=== PATIENT | female | born 1960 | race Caucasian/White ===

== ENCOUNTER 2018-12-20 07:51 | Emergency (ER) | payer OTHER ==
[2018-12-20 08:07] VITALS: BP 162/77
--- NOTE | 2018-12-20 08:23 | UC ---
Skin Complaint HPI - HPI Summary HPI Summary: 58-year-old female comes in with a chief complaint of swelling below the left I. Started several days ago. First she thought it might be her sinuses and then the swelling is spread to include her left lower eyelid. It is slightly tender to palpation. No eye drainage denies any eye pain. Does not have any upper respiratory tract infection symptoms. Does not remember beginning written by an insect or other irritation of the area. No fevers or chills feels well otherwise. - History of Current Complaint Chief Complaint: UCEye Time Seen by Provider: 12/20/18 08:14 Stated Complaint: LT EYE Pain Intensity: 5 - Allergy/Home Medications Allergies/Adverse Reactions: Allergies Allergy/AdvReac Type Severity Reaction Status Date / Time No Known Allergies Allergy Verified 12/20/18 08:06 Home Medications: Home Medications amLODIPine TAB* [Norvasc 5 mg TAB*] 5 mg PO DAILY 12/20/18 [History Confirmed ] PMH/Surg Hx/FS Hx/Imm Hx Previously Healthy: Yes Cardiovascular History: Hypertension - Surgical History Surgical History: Yes Surgery Procedure, Year, and Place: choly. appy. rotator left. left full knee - Family History Known Family History: Positive: Non-Contributory - Social History Alcohol Use: None Substance Use Type: None Smoking Status (MU): Never Smoked Tobacco Review of Systems All Other Systems Reviewed And Are Negative: Yes Constitutional: Positive: Negative Skin: Positive: Other - SEE HPI Eyes: Negative: Blurred Vision, Drainage, Eye Redness, Photophobia ENT: Positive: Negative Respiratory: Positive: Negative Cardiovascular: Positive: Negative Gastrointestinal: Positive: Negative Motor: Positive: Negative Neurovascular: Positive: Negative Musculoskeletal: Positive: Negative Neurological: Positive: Negative Psychological: Positive: Negative Is Patient Immunocompromised?: No Physical Exam Triage Information Reviewed: Yes Appearance: Well-Appearing, No Pain Distress, Well-Nourished Vital Signs: Initial Vital Signs Temp 98.2 F 12/20/18 07:59 Pulse 73 12/20/18 07:59 Resp 19 12/20/18 07:59 BP 162/77 12/20/18 07:59 Pulse Ox 99 12/20/18 07:59 Vital Signs Reviewed: Yes Eye Exam: Normal Eyes: Positive: Conjunctiva Clear. Negative: Conjunctiva Inflamed, Discharge ENT: Positive: Pharynx normal, Other - There is mild swelling of the left lower eyelid which extends 3 cm over the maxillary sinus on the left. Minimal erythema. There is no eye drainage no scleral injection. Patient reports no pain with movement of the eyes.. Negative: Nasal congestion, Nasal drainage Neck: Positive: Supple Respiratory: Positive: No respiratory distress Musculoskeletal Exam: Normal Musculoskeletal: Positive: Strength Intact, ROM Intact Neurological Exam: Normal Neurological: Positive: Alert, Muscle Tone Normal Psychological Exam: Normal Psychological: Positive: Age Appropriate Behavior Skin: Positive: Other - There is mild swelling of the left lower eyelid which extends 3 cm over the maxillary sinus on the left. Minimal erythema. Course/Dx - Course Course Of Treatment: Most probable cause of the swelling is a left lower eyelid stye. We talked about warm compresses and also antibiotic eyedrops. With the swelling and erythema in the area we discussed the possibility of periorbital cellulitis which does not appear to be at this time however because of the erythema we'll treat with the by mouth antibiotic. We discussed if this gets worse she needs to get reevaluated in the emergency department. Other possibilities include a localized contact reaction which I would expect to improve on its own. Patient has he reevaluated if worse. - Diagnoses Provider Diagnosis: Left facial swelling, Hypertension Discharge - Sign-Out/Discharge Documenting (check all that apply): Patient Departure All imaging exams completed and their final reports reviewed: No Studies - Discharge Plan Condition: Stable Disposition: HOME Prescriptions: Amoxicillin/Clavulanate TAB* [Augmentin TAB 875*] 875 mg PO BID #20 tab Tobramycin 0.3% OPHTH.LARISA* 1 drop LEFT EYE Q4H #1 btl Patient Education Materials: Stye (ED), Hypertension (ED), Periorbital Cellulitis in Adults (ED) Referrals: Yoandy Barcenas MD [Primary Care Provider] - Additional Instructions: FOLLOW UP WITH YOUR DOCTOR WITHIN 1 WEEK FOR YOUR HYPERTENSION. GO TO THE EMERGENCY DEPARTMENT IF YOUR CONDITION WORSENS; EYE PAIN, SPREAD OF INFECTION, FEVER, YOU FEEL ILL OR ANY QUESTIONS OR CONCERNS. - Billing Disposition and Condition Condition: STABLE Disposition: Home
== END 2018-12-20 08:33 | disposition home or self-care (01) ==
LOC: UCEAST 07:51
DX: R22.0 Localized swelling, mass and lump, head (principal); I10 Essential (primary) hypertension
CPT/HCPCS: 99212; G0463